=== PATIENT | female | born 1975 | race Caucasian/White ===

== ENCOUNTER 2020-04-28 12:46 | Emergency (ER) | payer OTHER ==
[~2020-04-28] VITALS: Ht 157.5 cm; Wt 72.6 kg
[~2020-04-28 12:46] MED LIST: BIRTH CONTROL; NORCO 5-325 TA1 EACH PO; ZANTAC 150MG T150 M1 PO
[2020-04-28] MEDS ORDERED: ADIPEX-P37.5 M1 PO (12:56)
[2020-04-28 13:05] LABS: ABSOLUTE BASOPHILS 0.1 thou/uL (0.0-0.2); ABSOLUTE EOSINOPHILS 0.1 thou/uL (0.0-0.7); ABSOLUTE LYMPHOCYTES 2.3 thou/uL (0.8-5.3); ABSOLUTE MONOCYTES 0.5 thou/uL (0.0-1.2); ABSOLUTE NEUTROPHILS 4.2 thou/uL (1.6-8.1); BASOPHILS 1.3 %; EOSINOPHILS 0.9 %; HEMATOCRIT 43.1 % (37.0-47.0); HEMOGLOBIN 14.9 gm/dL (12.0-15.0); LYMPHOCYTES 32.3 %; MCH 30.5 pg (26.0-34.0); MCHC 34.6 g/dL (28.0-37.0); MCV 88.1 fL (80.0-100.0); MONOCYTES 6.5 %; MPV 6.8 fl. (7.2-11.1); NUCLEATED RBCS 0 /100WBC; PLATELET COUNT* 325 thou/uL (150-400); RDW-CV 13.1 % (10.5-14.5); WBC 7.2 thou/uL (4.0-11.0)
[2020-04-28 13:14] LABS: CALCIUM 9.3 mg/dL (8.5-10.1); CREATININE 0.9 mg/dL (0.6-1.3); POTASSIUM 3.3 mmol/L (3.5-5.1)
[2020-04-28 13:16] LABS: PROTIME 10.6 Seconds (9.20-11.50)
[2020-04-28 13:28] LABS: ALBUMIN 4.7 g/dL (3.4-5.0); CK-MB MASS 0.7 ng/mL (<0.5-3.6); MAGNESIUM 2.1 mg/dL (1.8-2.4); TOTAL BILIRUBIN 0.7 mg/dL (<0.1-1.0)
[2020-04-28 13:47] VITALS: BP 115/68
--- NOTE | 2020-04-28 15:04 | EKG ---
[place] [address] ELECTROCARDIOGRAM REPORT Name: GAMALIELWYATT Clifton Room: [facility]#: [id number] Admission: 04/28/20 Attend Phys: Discharge: 04/28/20 Date of : 75 Date of Service: 04/28/20 1254 Report #: [id number] THIS REPORT FOR: //name// [facility] ED Test Date: 2020-04-28 Test Time: 12:54:53 Pat Name: WYATT ALSTON Department: Room: Gender: [employer]: : 1975 Requested By: Benedict Cohen Order Number: [id number] MD: Rod Milton Measurements Intervals [place] Rate: 84 P: 79 WV: 139 QRS: 65 QRSD: 89 T: 37 QT: 378 QTc: 447 Interpretive Statements Sinus rhythm Compared to ECG 10/23/2011 15:06:41 No significant changes Electronically Signed On 04-28-2020 15:04:13 CDT by Rod Milton [email or web address] <ELECTRONICALLY SIGNED> By: Rod Milton MD, [facility] 04/28/20 1504 1254 1254 Rod Milton MD, [facility] /EPI
== END 2020-04-28 13:49 | disposition home or self-care (01) ==
LOC: M.ERS 12:46
PROVIDERS: Family Medicine
DX: R00.2 Palpitations (principal); R06.00 Dyspnea, unspecified; Z88.0 Allergy status to penicillin; Z88.8 Allergy status to other drugs, medicaments and biological substances; Z90.711 Acquired absence of uterus with remaining cervical stump

== ENCOUNTER → 2021-08-23 | Outpatient (CLI) | payer OTHER ==
[~2021-08-23] MED LIST changes: +ADIPEX-P37.5 M1 PO
== END ==
LOC: M.MRI 14:04
PROVIDERS: ATTEND Nurse Practitioner Family
DX: M25.841 Other specified joint disorders, right hand (principal)

== ENCOUNTER → 2021-09-27 | Outpatient (CLI) | payer OTHER | LOC: M.LAB 16:19 | PROVIDERS: ATTEND Orthopaedic Surgery | DX: Z01.812 Encounter for preprocedural laboratory examination (principal); Z20.822 Contact with and (suspected) exposure to COVID-19 ==

== ENCOUNTER → 2021-11-07 | Outpatient (CLI) | payer OTHER | LOC: M.RAD 12:03 | PROVIDERS: ATTEND Orthopaedic Surgery | DX: M77.8 Other enthesopathies, not elsewhere classified (principal); R22.31 Localized swelling, mass and lump, right upper limb ==